=== PATIENT | female | born 1990 | race African-American/Black ===

== ENCOUNTER 2017-06-13 11:36 | Emergency (ER) | payer MEDICAID ==
[~2017-06-13 11:36] MED LIST: GUAISOL PO; ZITHTAB6 PO
[2017-06-13 11:38] VITALS: BP 130/84; PULSE 77; RESP 12; TEMP 98.5; O2SAT 99
--- NOTE | 2017-06-13 12:24 | PD ---
HPI Chief Complaint: Medical Clearance Time Seen by Provider: 12:07 Travel History International Travel<30 days: No Contact w/Intl Traveler<30days: No Traveled to known affect area: No History of Present Illness HPI 26 year-old otherwise healthy female presents to the emergency room for evaluation of intermittent burning chest pain that started earlier today. Pain is in the middle of her chest and radiates into her throat, like she has to vomit. She has not vomited and has no abdominal pain. Patient has not eaten in about 10 hours. Her last meal was fried chicken. She has never had symptoms like these before. She also complains of dysuria and foul-smelling urine and is concerned that they're related. Patient denies any family history of heart disease. PFSH Past Medical History Anemia: Yes Asthma: Yes (CHILDHOOD) Diabetes: No Diminished Hearing: No Headaches: Yes Immune Disorder: No Reproductive: Yes (HX PID) Immunizations Current: Yes Migraines: Yes Influenza Vaccination: No ?: Not LMP: on depo : 4 Para: 4 Miscarriage: 0 : 0 Past Surgical History Gynecologic Surgery: Yes (colposcopy) Social History Alcohol Use: No Tobacco Use: No Substance Use: No Allergies-Medications (Allergen,Severity, Reaction): Coded Allergies: No Known Allergies (Verified Adverse Reaction, Unknown, 06/13/17) Reported Meds & Prescriptions Reported Meds & Active Scripts Active Omeprazole 40 Mg Cap 40 Mg PO DAILY Review of Systems Except as stated in HPI: all other systems reviewed are Neg Physical Exam Narrative GENERAL: Well-nourished, well-developed female in no acute distress. Afebrile. Ambulatory. SKIN: Focused skin assessment warm/dry. HEAD: Normocephalic. EYES: No scleral icterus. No injection or drainage. NECK: Supple, trachea midline. No JVD or lymphadenopathy. ENT: Mucosa pink and moist. Cobblestoning in the pharynx. No uvular edema. No uvular, palatal, or tonsillar deviation. Airway patent. Nasal turbinates appear normal without nasal blood, purulent drainage or septal hematoma. CARDIOVASCULAR: Regular rate and rhythm without murmurs, gallops, or rubs. RESPIRATORY: Breath sounds equal bilaterally. No accessory muscle use. GASTROINTESTINAL: Abdomen soft, non-tender, nondistended. Data Data Last Documented VS Vital Signs Date Time Temp Pulse Resp B/P (MAP) Pulse Ox O2 Delivery O2 Flow Rate FiO2 06/13/17 11:38 98.5 77 12 130/84 (99) 99 Orders Orders Al-Mag Hy-Si 40-40-4 Mg/Ml Liq (Mag-Al P (06/13/17 12:30) Lidocaine 2% Viscous (Xylocaine 2% Visco (06/13/17 12:30) Urinalysis - C+S If Indicated (06/13/17 12:19) Electrocardiogram (06/13/17 ) Ed Discharge Order (06/13/17 13:46) Labs Laboratory Tests Test 06/13/17 12:30 Urine Color LIGHT-YELLOW Urine Turbidity HAZY Urine pH 7.5 Urine Specific [place] 1.016 Urine Protein NEG mg/dL Urine Glucose (UA) NEG mg/dL Urine Ketones NEG mg/dL Urine Occult Blood NEG Urine Nitrite NEG Urine Bilirubin NEG Urine Urobilinogen LESS THAN 2.0 MG/DL Urine Leukocyte Esterase SMALL Urine RBC 1 /hpf Urine WBC 3 /hpf Urine Squamous Epithelial Cells 9 /hpf Urine Bacteria OCC /hpf Microscopic Urinalysis Comment CULT NOT INDICATED MDM Medical Decision Making Medical Screen Exam Complete: Yes Emergency Medical Condition: Yes Medical Record Reviewed: Yes Differential Diagnosis GERD, PUD, anxiety Narrative Course 26-year-old female presents to the emergency room for evaluation of intermittent , retrosternal burning chest pain that radiates to her neck that started earlier today. Patient has not had food and about 10 hours and her last meal was fried chicken. No associated nausea, vomiting, or abdominal pain. She is well-appearing and in no acute distress. Vital signs stable. History and physical exam are consistent with GERD. Patient given GI cocktail in ED with complete improvement in symptoms. She also complained of dysuria and is afraid it is related to her chest pain symptoms. UA is unremarkable. EKG shows sinus rhythm with a rate of 68 bpm, no ST changes or evidence of acute IA; signed off by my attending physician. Patient will be discharged with prescription for omeprazole and told to follow up with a primary care physician or return for worsening symptoms. She understands and agrees to plan. Diagnosis Primary Impression: GERD (gastroesophageal reflux disease) Qualified Codes: K21.0 - Gastro-esophageal reflux disease with esophagitis Referrals: Primary Care Physician Additional Instructions: Omeprazole as directed, until gone. Follow-up with PCP. Return for worsening symptoms. Scripts Omeprazole (Omeprazole) 40 Mg Cap 40 MG PO DAILY, #30 CAP 0 Refills Prov: Ricki South MD 06/13/17 Disposition: 01 DISCHARGE HOME Condition: Stable Juliet Guzmán Jun 13, 2017 12:24
[2017-06-13] MEDS ORDERED: LIDOCAINE VISCOUS 2% SOLN 15 ML UDC PO ONE (12:30)
[2017-06-13] MEDS ORDERED: ALUMINUM/MAGNESIUM/SIMETH 30 ML CUP PO ONE (12:30)
[2017-06-13 12:51] LABS: BACTERIA, URINE OCC /hpf; BLOOD, URINE NEG (NEG); GLUCOSE,URINE NEG (NEG); KETONE, URINE NEG (NEG); NITRITE,URINE NEG (NEG); PH, URINE 7.5 (5.0-8.5); SQUAMOUS EPITHELIAL CELL URINE 9 /hpf (0-5); URINE COLOR LIGHT-YELLOW (YELLW/STRAW)
[2017-06-13 12:53] LABS: COMMENT (UR) CULT NOT INDICATED; CULTURE IF INDICATED CULT NOT INDICATED
[2017-06-13] MEDS ORDERED: OMEP40CA2 PO (13:06)
--- NOTE | 2017-06-14 17:35 | EKG ---
Date Performed: 06/13/2017 Time Performed: 13:08:00 PTAGE: 26 years EKG: Sinus rhythm LEFT ANTERIOR FASCICULAR BLOCK Since previous tracing, no significant change noted ABNORMAL ECG PREVIOUS TRACING : 10/11/2011 13.53 DOCTOR: Amy Wagner Interpretating Date/Time 06/14/2017 17:34:52
== END 2017-06-13 13:54 | disposition home or self-care (01) ==
LOC: NEPD 11:36
DX: K21.9 Gastro-esophageal reflux disease without esophagitis (principal); D64.9 Anemia, unspecified; J45.909 Unspecified asthma, uncomplicated; I44.4 Left anterior fascicular block; R94.31 Abnormal electrocardiogram [ECG] [EKG]
CPT/HCPCS: 81001; 93005; 99283